=== PATIENT | female | born 1950 | race Caucasian/White ===

== ENCOUNTER 2022-05-27 09:44 | Outpatient (CLI) | payer MEDICARE, SELFPAY ==
--- NOTE | 2022-05-27 09:48 | DI.RAD.S_ITS ---
PROCEDURE: PAIN L/S TRANSFORAM INJECT MICHAEL COMPARISON: [facility], JEN, MRI L-SPINE W/O CONTRAST, 11/05/2021, 15:22. [facility], JEN, XR L-SPINE 4-6V, 10/30/2021, 17:26. INDICATIONS: SPONDYLOSIS FINDINGS: 8 intraoperative fluoroscopy images were obtained demonstrating injection at L4-L5 bilaterally IMPRESSIONFluoroscopy for pain management. Dictated by: Shanell Gray M.D. on 05/27/2022 at 12:09 Approved by: Shanell Gray M.D. on 05/27/2022 at 12:10
[2022-05-27 10:50] VITALS: BP 155/87; PULSE 65; RESP 16; TEMP 36.9; O2SAT 99
[2022-05-27 11:15] VITALS: BP 171/79; PULSE 62; RESP 15; O2SAT 97
[2022-05-27] MEDS: IOPAMIDOL 15 ML VIAL 3 ML INJ (11:16)
[2022-05-27] MEDS: BUPIVACAINE 0.25% (PF) VIAL 5 ML SUBCUT (11:17)
[2022-05-27] MEDS: BETAMETHASONE 30 MG/5 ML MDV 6 MG INJ (11:17)
[2022-05-27 11:20] VITALS: BP 175/75; PULSE 62; RESP 18; O2SAT 96
[2022-05-27 11:25] VITALS: BP 160/74; PULSE 63; RESP 14; O2SAT 100
[2022-05-27] MEDS: DEXAMETHASONE 10 MG/ML VIAL 20 MG INJ (11:27)
[2022-05-27 11:30] VITALS: BP 155/77; PULSE 62; RESP 18; O2SAT 100
--- NOTE | 2022-05-27 11:35 | PM.PROC.IR.1 ---
Date/Time/Diagnoses Date of procedure: 05/27/22 Time of procedure: 11:35 Pre-procedure diagnosis: 1. FORAMINAL STENOSIS WITH LE SYMPTOMS Procedure Notes Procedure: 1. FLUOROSCOPICALLY GUIDED CONTRAST CONTROLLED TRANSFORAMINAL EPIDURAL STEROID INJECTION - BILATERAL L4/5 TFESI Indications: Ashley is referred by Dr. Mcguire for treatment of Foraminal Stenosis with bilateral LE Symptoms Physician: Bonifacio Segovia Total Fluoroscopy time (seconds): 19 Total sedation minutes: 0 Complications: none Procedure in detail & Post-procedure care: FINDINGS Foraminal Nerve Root Compression secondary to disc disease and facet hypertrophy DESCRIPTION OF PROCEDURE Following review of allergy and review of potential side effects and complications, including, but not necessarily limited to, infection, allergic reaction, local tissue breakdown, stroke, temporary or permanent nerve injury, paralysis, and possible , the patient indicated that the patient understood and agreed to proceed. An informed consent document was signed by the patient, witnessed by a nurse, and placed in the patient's chart. Additionally, other treatment options including medications, modalities, and physical therapy were reviewed with the patient. After review of previous anaesthesic history and IV conscious sedation the patient was deemed safe to proceed with today?s procedure with IV conscious sedation as ASA class II designation. Safety time-out was performed to confirm patient ID, procedure to be performed and site of procedure. IV sedation was deemed unnecessary and thus not administered by the RN after DO order, titrated to patient comfort during the course of the procedure while the patient remained responsive to all verbal commands In the prone position following sterile prep and drape of the lumbar region, the right L4/5 posterior neuroforamen was identified fluoroscopically. The skin was anesthetized via a 25-gauge 1.5-inch needle with 1% lidocaine solution. At this point, a 25-gauge 3.5-inch spinal needle was atraumatically introduced and advanced under fluoroscopic guidance through the posterior right L4/5 neuroforamen to approximately the anterior aspect of the canal. Depth was confirmed on lateral view. Following negative aspiration, injection of approximately 1.5cc of Isovue 200 under live fluoroscopy in the AP view confirmed excellent flow along the nerve root, into the epidural space without vascular or intrathecal uptake observed Radiological data, including multiple fluoroscopic views of the lumbosacral spine, reveal a spinal needle at the right L4/5 posterior neuroforamen. Subsequent views show flow of contrast material flowing superiorly and inferiorly along the nerve root confirming epidural flow. Subsequently, a test dose of 1.5cc of 1% lidocaine solution was administered and patient was observed for two minutes for signs or symptoms of complications, including abdominal pain, shortness of breath, bilateral upper or lower extremity weakness, nausea and vomiting, prior to steroid injection. At this point, a total of 3cc or 20mg of dexamethasone and 6mg betamethasone was injected without incident. Attention was then refocused to the left L4/5 level where the identical procedure was replicated. The procedure tolerated the procedure well without signs or symptoms of complications prior to transfer to the recovery area continued monitoring without incident. The patient was then transferred to the recovery area where they were observed for an appropriate time after the injection. The patient reported a VAS score of 7 prior to the procedure and a post-procedure VAS of 0. POST OP INSTRUCTIONS The patient was provided a Pain Log to continue to record their response to the target-specific procedure prior to follow-up visit with their referring physician. Additionally, specific post-injection care instructions and a contact number to our office were provided if concerns arise regarding possible complications associated with the procedure are suspected.
[2022-05-27 11:38] VITALS: BP 154/81; PULSE 64; RESP 15; O2SAT 100
== END 2022-05-27 11:42 | disposition home or self-care (01) ==
LOC: RAD 09:45
PROVIDERS: PCP Internal Medicine; Referring Provider Physical Medicine & Rehabilitation; Visit Provider Physical Medicine & Rehabilitation
DX: M48.062 Spinal stenosis, lumbar region with neurogenic claudication (principal); M51.16 Intervertebral disc disorders with radiculopathy, lumbar region
CPT/HCPCS: 64483; J0702; J1100; J2250; J3490

== ENCOUNTER 2022-09-09 12:14 | Outpatient (CLI) | payer MEDICARE, SELFPAY ==
[2022-09-09] VITALS (9 sets, daily range): BP systolic 133–166; BP diastolic 65–80; PULSE 60–75; RESP 15–22; TEMP 36.8; O2SAT 98–100
--- NOTE | 2022-09-09 12:18 | DI.RAD.S_ITS ---
PROCEDURE: PAIN L/S FACET INJ/BLK 1ST MICHAEL COMPARISON: None. INDICATIONS: SPONDYLOSIS FINDINGS: [place] have been placed in the region of the right L4-L5 and right L5-S1 facets for a 2 level lumbar facet steroid injection. IMPRESSION: C-arm imaging utilized during 2 level lumbar facet steroid injection. Dictated by: Nba Martin M.D. on 09/09/2022 at 14:57 Approved by: Nba Martin M.D. on 09/09/2022 at 14:58
[2022-09-09] MEDS: MIDAZOLAM 2 MG/2 ML VIAL IV (13:18)
[2022-09-09] MEDS: BETAMETHASONE 30 MG/5 ML MDV 12 MG INJ (13:21)
[2022-09-09] MEDS: IOPAMIDOL 15 ML VIAL 3 ML INJ (13:21)
[2022-09-09] MEDS: LIDOCAINE 1% (PF) 5 ML INJ (13:22)
[2022-09-09] MEDS: BUPIVACAINE 0.5% (PF) 10 ML VIAL INJ (13:23)
--- NOTE | 2022-09-09 13:36 | P.PCN_ITS ---
Date/Time/Diagnoses Date of procedure: 09/09/22 Time of procedure: 13:36 Pre-procedure diagnosis: 1. FACET ARTHROPATHY 2. AXIAL LBP 3. MULTILEVEL DDD Post-procedure diagnosis: same Procedure Notes Procedure: 1. FLUOROSCOPICALLY GUIDED CONTRAST CONTROLLED FACET JOINT INJECTIONS BILATERAL L4/5, L5/S1 Indications: Ashley is referred by Dr. Mcguire for treatment of Axial LBP Physician: Bonifacio Segovia Total Fluoroscopy time (seconds): 13 Total sedation minutes: 15 Complications: none Procedure in detail & Post-procedure care: FINDINGS Multilevel Facet Arthropathy with Clinically significant axial LBP DESCRIPTION OF PROCEDURE Fluoroscopically guided, contrast-controlled bilateral L4/5, L5/S1 facet joint injections. Following review of allergy and review of potential side effects and complications, including, but not necessarily limited to, infection, allergic reaction, local tissue breakdown, stroke, temporary or permanent nerve injury, paralysis, and possible , the patient indicated that the patient understood and agreed to proceed. An informed consent document was signed by the patient, witnessed by a nurse, and placed in the patient's chart. Additionally, other treatment options including medications, modalities, and physical therapy were reviewed with the patient. After review of previous anaesthesic history and IV conscious sedation the patient was deemed safe to proceed with today?s procedure with IV conscious sedation as ASA class II designation. Safety time-out was performed to confirm patient ID, procedure to be performed and site of procedure. IV sedation was accomplished with a combination of 2mg of Versed was administered by the RN after DO order, titrated to patient comfort during the course of the procedure while the patient remained responsive to all verbal commands In the prone position, following sterile prep and drape of the lumbar region, the posterior aspect of the L4/5, L5/S1 facet joints were identified fluoroscopically. The skin was anesthetized via a 25-gauge 1.5inch needle with 1% lidocaine solution into the corresponding facet joints. At this point, a 22- gauge 3.5-inch spinal needle was atraumatically introduced and advanced under fluoroscopic guidance into the corresponding facet joints. Following negative aspiration, injections of approximately 0.2cc of Isovue 200 confirmed interarticular placement without vascular uptake. The identical procedure was then performed at the L4/5, L5/S1 facet joints on the left with the addition of facet cyst rupture included at the L5/S1. Radiological data, including multiple fluoroscopic views of the lumbosacral spine, reveal a spinal needle at the L4/5, L5/S1 facet joints bilaterally. Subsequent views show flow of contrast material both superiorly and inferiorly within the joint space without vascular or intrathecal uptake. At this point, a total of 0.5cc including a mixture of 0.25cc Marcaine and 0.25cc betamethasone was injected without complication into each of the corresponding facet joints. The patient tolerated the procedure well without signs or symptoms of complications prior to transfer to the recovery area continued monitoring withou t incident. The patient was then transferred to the recovery area where they were observed for an appropriate period of time after the injection. The patient reported a VAS score of 7 prior to the procedure and a post- procedure VAS of 0. POST OP INSTRUCTIONS The patient was provided a Pain Log to continue to record their response to the target-specific procedure prior to follow-up visit with their referring physician. Additionally, specific post-injection care instructions and a contact number to our office were provided if concerns arise regarding possible comp lications associated with the procedure are suspected.
== END 2022-09-09 13:53 | disposition home or self-care (01) ==
PROVIDERS: PCP Internal Medicine; Referring Provider Physical Medicine & Rehabilitation; Visit Provider Physical Medicine & Rehabilitation
DX: M47.816 Spondylosis without myelopathy or radiculopathy, lumbar region (principal); M47.817 Spondylosis without myelopathy or radiculopathy, lumbosacral region; M51.36 Other intervertebral disc degeneration, lumbar region; M51.37 Other intervertebral disc degeneration, lumbosacral region
CPT/HCPCS: 64493; 64494; 99152; J0702; J2250; J3490